=== PATIENT | male | born 1985 | race Caucasian/White ===

== ENCOUNTER 2017-06-04 23:29 | Emergency (ER) | payer BC ==
[2017-06-04 23:42] VITALS: BP 131/91
[2017-06-04] MEDS ORDERED: Acetaminophen/HYDROcodone 325-10 MG Tab PO ONE (23:45)
[2017-06-04] MEDS ORDERED: Clindamycin HCl 150 MG Cap PO ONE (23:45)
--- NOTE | 2017-06-04 23:50 | EDM.PDOC ---
ED HPI GENERAL MEDICAL PROBLEM - General Chief Complaint: ENT Problem Stated Complaint: TOOTH ACHE Time Seen by Provider: 06/04/17 23:46 Source of Information: Reports: Patient History Limitations: Reports: No Limitations - History of Present Illness INITIAL COMMENTS - FREE TEXT/NARRATIVE: Sx all day almost passed out tonight from pain Tooth/Teeth Pain Score (Numeric/FACES): 8 - Related Data Allergies Allergy/AdvReac Type Severity Reaction Status Date / Time No Known Allergies Allergy Verified 06/04/17 23:37 Home Meds: Home Meds . [No Known Home Meds] 06/04/17 [History] ED ROS ENT - Review of Systems Review Of Systems: ROS reveals no pertinent complaints other than HPI. ED EXAM, ENT - Physical Exam Exam: See Below Exam Limited By: No Limitations General Appearance: Alert, WD/WN, Mild Distress, Other (tooth pain) Ears: Hearing Grossly Normal Nose: Nasal Deformity Mouth/Throat: Dental Abcess, Dental Pain, Dental Tenderness Head: Atraumatic Neck: Non-Tender, Full Range of Motion Respiratory/Chest: No Respiratory Distress Cardiovascular: Regular Rate, Rhythm GI/Abdominal: Soft, Non-Tender Neurological: Alert, Oriented, Normal Cognition, Normal Gait, No Motor/Sensory Deficits Psychiatric: Tearful Skin: Warm, Dry, Normal Color Lymphatic: No Adenopathy Course - Vital Signs Last Recorded V/S: Last Vital Signs Temp 36.6 C 06/04/17 23:39 Pulse 57 L 06/04/17 23:39 Resp 20 06/04/17 23:39 BP 131/91 H 06/04/17 23:39 Pulse Ox 100 06/04/17 23:39 - Orders/Labs/Meds Orders: Active Orders 24 hr Category Date Time Status Acetaminophen/HYDROcodone [[place]ckard 325-10 MG] Med 06/04/17 23:45 Once 1 tab PO ONETIME ONE Clindamycin HCl [Cleocin] Med 06/04/17 23:45 Once 150 mg PO ONETIME ONE Departure - Departure Time of Disposition: 23:47 Disposition: Home, Self-Care 01 Condition: Good Clinical Impression: Dental abscess, Dental caries - Discharge Information Instructions: Dental Abscess, [id number] Forms: ED Department Discharge Additional Instructions: 1) avoid solid foods, sodas, candies 2) see dentist as soon as possible rx given clindamycin 150mg qid x 40 vicodin 5/325mg bid prn x 12 - My Orders Last 24 Hours: My Active Orders 06/04/17 23:45 Acetaminophen/HYDROcodone [Pinckard 325-10 MG] 1 tab PO ONETIME ONE Clindamycin HCl [Cleocin] 150 mg PO ONETIME ONE - Assessment/Plan Last 24 Hours: My Active Orders 06/04/17 23:45 Acetaminophen/HYDROcodone [Pinckard 325-10 MG] 1 tab PO ONETIME ONE Clindamycin HCl [Cleocin] 150 mg PO ONETIME ONE
== END 2017-06-04 23:56 | disposition home or self-care (01) ==
LOC: DL.ED 23:29
DX: K04.7 Periapical abscess without sinus (principal); K02.9 Dental caries, unspecified
CPT/HCPCS: 99282; A9270